=== PATIENT | female | born 1970 | race Caucasian/White ===

== ENCOUNTER 2023-07-13 19:18 | Emergency (ER) | payer BC ==
[~2023-07-13] VITALS: Ht 165.1 cm; Wt 125.0 kg
[2023-07-13 19:27] VITALS: TEMP 98.3
[2023-07-13 19:54] LABS: BASO # 0.1 K/mm3 (0.0-0.2); BASO % 0.6 % (0.0-2.0); EOS # 0.3 K/mm3 (0.0-0.7); EOS % 3.1 % (0.0-4.0); GRAN % 47.6 % (42.2-75.2); HEMATOCRIT 41.2 % (37.0-47.0); HEMOGLOBIN 13.7 g/dl (12.5-16.0); LYMPH # 3.4 K/mm3 (1.2-3.4); LYMPH % 40.6 % (20.0-51.0); MEAN CELL VOLUME 91 fl (80.0-100.0); MEAN CORPUSCULAR HEMOGLOBIN 30 pg (27-31); MEAN CORPUSCULAR HGB CONC 33 g/dl (33.0-37.0); MEAN PLATELET VOLUME 9.1 fl (7.4-10.4); MONO # 0.6 K/mm3 (0.1-0.6); MONO % 7.7 % (1.7-9.3); PLATELET COUNT 388 K/mm3 (130-400); RED BLOOD COUNT 4.51 M/mm3 (4.10-5.30); REDCELL DISTRIBUTION WIDTH-CV 12.2 % (11.5-14.5)
[2023-07-13 20:22] LABS: ALANINE AMINOTRANSFERASE 41 U/L (0-55); ALBUMIN 3.7 gm/dL (3.5-5.0); ALKALINE PHOSPHATASE 65 U/L (40-150); ANION GAP 12 mmol/L (7-16); AST,SGOT 29 U/L (5-34); BILIRUBIN,TOTAL 0.6 mg/dL (0.2-1.2); BLOOD UREA NITROGEN 13 mg/dL (10-20); CALCIUM 9.9 mg/dL (8.4-10.2); CARBON DIOXIDE 26 mmol/L (22-29); CHLORIDE 103 mmol/L (98-107); GLUCOSE 145 mg/dL (70-99); POTASSIUM 4.4 mmol/L (3.5-4.5); SODIUM 141 mmol/L (136-145); TOTAL PROTEIN 7.2 gm/dL (6.2-8.1)
[2023-07-13 20:31] LABS: TROPONIN-I < 0.010 ng/mL (0.00-0.033)
[2023-07-13] MEDS ORDERED: NS 1,000 ML IV ONE (21:15)
[2023-07-13 21:16] LABS: COLLECTION METHOD CLEAN CATCH
[2023-07-13 21:19] LABS: URINE APPEARANCE CLEAR (CLEAR/HAZY); URINE BLOOD NEGATIVE (NEGATIVE); URINE COLOR YELLOW (YELLOW); URINE GLUCOSE 3+ (NEGATIVE); URINE KETONE NEGATIVE (NEGATIVE); URINE NITRATE NEGATIVE (NEGATIVE); URINE PROTEIN(semi-quant) NEGATIVE (NEGATIVE)
[2023-07-14] MEDS ORDERED: Iohexol 350 - 100 ML VIAL IV ONE
[2023-07-14] MEDS ORDERED: NS 50 ML IV ONE (00:02)
[2023-07-14 01:40] VITALS: BP 108/65; PULSE 78
== END 2023-07-14 01:45 | disposition home or self-care (01) ==
LOC: COL.ER 19:18
PROVIDERS: Nurse Practitioner Family; Physician Assistant
DX: R03.1 Nonspecific low blood-pressure reading (principal); R42 Dizziness and giddiness; R53.81 Other malaise; R53.83 Other fatigue; R06.02 Shortness of breath; E66.9 Obesity, unspecified; I10 Essential (primary) hypertension; T46.4X6A Underdosing of angiotensin-converting-enzyme inhibitors, initial encounter; T50.2X6A Underdosing of carbonic-anhydrase inhibitors, benzothiadiazides and other diuretics, initial encounter; Z91.148 Patient's other noncompliance with medication regimen for other reason; Z68.42 Body mass index [BMI] 45.0-49.9, adult
CPT/HCPCS: J7030; Q9967